=== PATIENT | male | born 1995 | race Hispanic/Latino ===

== ENCOUNTER 2018-06-17 23:07 | Emergency (ER) | payer BC ==
[2018-06-18] MEDS ORDERED: Sodium Chloride 0.9% 1,000 ML IV STA (00:40)
--- NOTE | 2018-06-18 00:44 | ED PDOC ---
HPI:Nausea, Vomiting, Diarrhea Time Seen by Provider: 06/18/18 00:14 Chief Complaint (Nursing): Abdominal Pain Chief Complaint (Provider): vomiting, diarrhea History Per: Patient History/Exam Limitations: no limitations Onset/Duration Of Symptoms: Hrs (7) Current Symptoms Are (Timing): Still Present Additional Complaint(s): 23 y/o male presents for evaluation of multiple episodes of vomiting and diarrhea x 7 hours. Patient states he thinks he may have eaten bad [place] food for lunch. Denies fever, cough, congestion, chest pain, shortness of breath, palpitations, abdominal pain, urinary symptoms, recent travel, sick contacts. Past Medical History Reviewed: Historical Data, Nursing Documentation, Vital Signs Vital Signs: Last Vital Signs Temp 98.5 F 06/18/18 00:08 Pulse 125 H 06/18/18 00:08 Resp 19 06/18/18 00:08 BP 113/58 L 06/18/18 00:08 Pulse Ox 97 06/18/18 00:08 - Medical History PMH: No Chronic Diseases - Surgical History Surgical History: No Surg Hx - Family History Family History: States: No Known Family Hx - Living Arrangements Living Arrangements: With Family - Home Medications Home Medications: Ambulatory Orders Medication Instructions Recorded Famotidine [Pepcid] 20 mg PO BID #10 tab 06/18/18 Ondansetron ODT [Zofran ODT] 4 mg PO Q8 PRN #12 odt 06/18/18 - Allergies Allergies/Adverse Reactions: Allergies Allergy/AdvReac Type Severity Reaction Status Date / Time No Known Allergies Allergy Verified 06/18/18 00:13 Review of Systems ROS Statement: Except As Marked, All Systems Reviewed And Found Negative Gastrointestinal: Positive for: Nausea, Vomiting, Diarrhea Physical Exam - Reviewed Nursing Documentation Reviewed: Yes Vital Signs Reviewed: Yes - Physical Exam Appears: Positive for: Well, Non-toxic, No Acute Distress Head Exam: Positive for: ATRAUMATIC, NORMAL INSPECTION, NORMOCEPHALIC Skin: Positive for: Normal Color Eye Exam: Positive for: Normal appearance ENT: Positive for: Normal ENT Inspection Cardiovascular/Chest: Positive for: Regular Rate, Rhythm Respiratory: Positive for: Normal Breath Sounds Gastrointestinal/Abdominal: Positive for: Normal Exam Back: Positive for: Normal Inspection Extremity: Positive for: Normal ROM Neurologic/Psych: Positive for: Alert, Oriented (x3) - Laboratory Results Result Diagrams: 06/18/18 01:25 06/18/18 01:25 - ECG O2 Sat by Pulse Oximetry: 97 - Progress ED Course And Treament: -cbc -cmp -lipase -IV NS bolus -IV zofran -IV pepcid On re-eval, patient states he is feeling much better; tolerating PO. Abdomen soft, NT/ND. No complaints of pain Patient educated on findings, discharged with rx Zofran, Pepcid Advised increase fluid intake. BRAT diet Follow up PMD within 2-3 days Return precautions given Disposition - Clinical Impression Clinical Impression: Gastroenteritis - Patient ED Disposition Is Patient to be Admitted: No Counseled Patient/Family Regarding: Studies Performed, Diagnosis, Need For Followup, Rx Given - Disposition Disposition: Routine/Home Disposition Time: 03:09 Condition: IMPROVED Prescriptions: Famotidine [Pepcid] 20 mg PO BID #10 tab Ondansetron ODT [Zofran ODT] 4 mg PO Q8 PRN #12 odt PRN Reason: Nausea/Vomiting Instructions: Gastroenteritis (ED) Forms: [employer] (Tajik)
[2018-06-18 01:28] LABS: BASO # 0.1 K/uL (0.0-0.2); BASO % 0.7 % (0.0-2.0); EOS % 0.4 % (0.0-4.0); HEMOGLOBIN 16.1 g/dL (12.0-18.0); LYMPH # 0.2 K/uL (1.0-4.3); MEAN CELL VOLUME 85.5 fl (80.0-94.0); MEAN CORPUSCULAR HEMOGLOBIN 28.4 pg (27.0-31.0); MEAN CORPUSCULAR HGB CONC 33.2 g/dL (33.0-37.0); MEAN PLATELET VOLUME 9.5 fl (7.2-11.7); MONO # 0.2 K/uL (0.0-0.8); MONO % 1.8 % (0.0-10.0); NEUT # 11.7 K/uL (1.8-7.0); NEUT % 95.1 % (50.0-75.0); PLATELET COUNT 180 K/uL (130-400); RBC 5.67 Mil/uL (4.40-5.90); WHITE BLOOD COUNT 12.2 K/uL (4.8-10.8)
[2018-06-18 01:42] LABS: ALB/GLOB RATIO 1.7 (1.0-2.1); ALT/SGPT 36 U/L (21-72); AST/SGOT 26 U/L (17-59); BLOOD UREA NITROGEN 20 mg/dl (9-20); CALCIUM 9.8 mg/dL (8.4-10.2); GFR NON-AFRICAN AMERICAN > 60; LIPASE 28 U/L (23-300)
[2018-06-18 02:53] VITALS: BP 121/73; PULSE 89; RESP 15; TEMP 98.2
[2018-06-18 03:00] LABS: BANDS 10 % (0-2); LYMPHOCYTE 2 % (20-50); MONOCYTE 5 % (0-10); NEUTROPHIL 83 % (42-75); TOTAL CELLS COUNTED 100
[2018-06-18 03:01] LABS: ANISOCYTOSIS SLIGHT; PLATELET ESTIMATE NORMAL (NORMAL); STOMATOCYTES SLIGHT
[2018-06-18 03:04] VITALS: O2SAT 97
== END 2018-06-18 03:17 | disposition home or self-care (01) ==
LOC: H.ER 23:07
DX: K52.9 Noninfective gastroenteritis and colitis, unspecified (principal)
CPT/HCPCS: 80053; 83690; 85025; 96374; 99283; J2405; J7030